=== PATIENT | female | born 1945 | race Caucasian/White ===

== ENCOUNTER 2019-09-24 11:55 | Inpatient (IN) | payer OTHER ==
[~2019-09-24] VITALS: Ht 162.6 cm; Wt 67.6 kg
[2019-11-03] MEDS ORDERED: JANUMET XR 1001 EACH PO (14:16)
[2019-11-03] MEDS ORDERED: ATACAND32 MG PO (14:16)
[2019-11-03] MEDS ORDERED: HYDROCHLOROTH12.5 MG PO (14:17)
[2019-11-03] MEDS ORDERED: NORVASC5 MG PO (14:17)
[2019-11-03] MEDS ORDERED: ATORVASTATIN CA40 MG PO (14:17)
[2019-11-03] MEDS ORDERED: GABAPENTIN600 MG PO (14:18)
[2019-11-03] MEDS ORDERED: BUSPIRONE HCL10 MG PO (14:18)
[2019-11-03] MEDS ORDERED: FENOFIBRATE160 MG PO (14:18)
[2019-11-13] MEDS ORDERED: HYOSCYAMINE0.125 M1 SL (09:13)
[2019-11-13] MEDS ORDERED: INTESTINEX680 M1 PO (09:13)
[2019-11-13] MEDS ORDERED: ULTRACET PO (09:14)
== END 2019-11-13 11:09 | disposition home or self-care (01) | DRG 331 ==
LOC: RECOVERY 11-10 07:00 → O/R 11-10 07:52 → SURG 11-10 07:52 → RECOVERY 11-10 11:30 → SURG 11-10 14:06
PROVIDERS: ADMIT Surgery; ATTEND Surgery
PROC: 07TB4ZZ Resection of Mesenteric Lymphatic, Percutaneous Endoscopic Approach (ICD-10-PCS; 2019-11-10)
PROC: 0DTF4ZZ Resection of Right Large Intestine, Percutaneous Endoscopic Approach (ICD-10-PCS; principal; 2019-11-10 07:00)
DX: D12.2 Benign neoplasm of ascending colon (principal); Z20.828 Contact with and (suspected) exposure to other viral communicable diseases; R59.0 Localized enlarged lymph nodes

== ENCOUNTER 2020-11-30 05:15 | Day surgery (SDC) | payer OTHER ==
[~2020-11-30 05:15] MED LIST: ATACAND32 MG PO; ATORVASTATIN CA40 MG PO; BUSPIRONE HCL10 MG PO; FENOFIBRATE160 MG PO; GABAPENTIN600 MG PO; HYDROCHLOROTH12.5 MG PO; HYOSCYAMINE0.125 M1 SL; INTESTINEX680 M1 PO; JANUMET XR 1001 EACH PO; NORVASC5 MG PO; ULTRACET PO
== END 2020-11-30 10:25 | disposition home or self-care (01) ==
LOC: AMB-ENDOS 05:15
PROVIDERS: ATTEND Surgery
DX: C18.4 Malignant neoplasm of transverse colon (principal); D12.4 Benign neoplasm of descending colon; K64.8 Other hemorrhoids

== ENCOUNTER 2020-12-28 10:45 | Inpatient (IN) | payer OTHER ==
[~2020-12-28] VITALS: Ht 162.6 cm; Wt 66.7 kg
[2020-12-28] MEDS ORDERED: PROSAC PO (12:46)
[2021-01-05] MEDS ORDERED: FLUOXETINE HCL20 MG (14:41)
[2021-01-05] MEDS ORDERED: CANDESARTAN-HC1 EAC2 (14:42)
[2021-01-05] MEDS ORDERED: FAMOTIDINE40 MG (14:42)
[2021-01-06] MEDS ORDERED: HYOSCYAMINE0.125 M1 SL (12:56)
[2021-01-06] MEDS ORDERED: ULTRACET PO (12:57)
[2021-01-06] MEDS ORDERED: INTESTINEX680 M1 PO (12:57)
== END 2021-01-06 14:53 | disposition home or self-care (01) | DRG 331 ==
LOC: O/R 01-03 05:47 → SURH 01-03 05:47
PROVIDERS: ADMIT Surgery; ATTEND Surgery
PROC: 0DTL4ZZ Resection of Transverse Colon, Percutaneous Endoscopic Approach (ICD-10-PCS; principal; 2021-01-03 07:00)
DX: C18.4 Malignant neoplasm of transverse colon (principal); F41.9 Anxiety disorder, unspecified; E78.00 Pure hypercholesterolemia, unspecified; E11.65 Type 2 diabetes mellitus with hyperglycemia; E11.22 Type 2 diabetes mellitus with diabetic chronic kidney disease; I13.10 Hypertensive heart and chronic kidney disease without heart failure, with stage 1 through stage 4 chronic kidney disease, or unspecified chronic kidney disease; N18.30 Chronic kidney disease, stage 3 unspecified; Z79.4 Long term (current) use of insulin